=== PATIENT | female | born 1995 | race African-American/Black ===

== ENCOUNTER 2018-08-03 12:15 | Emergency (ER) | payer OTHER ==
[~2018-08-03] VITALS: Ht 152.4 cm; Wt 54.9 kg
[2018-08-03 13:07] LABS: PLATELET COUNT 355 K/uL (152-353)
[2018-08-03 13:15] LABS: POTASSIUM 3.6 mmol/L (3.6-5.2)
[2018-08-03 15:15] VITALS: BP 129/84; TEMP 98.7
== END 2018-08-03 15:24 | disposition home or self-care (01) ==
LOC: ED 12:15
PROVIDERS: Family Medicine
DX: R10.84 Generalized abdominal pain (principal); S22.41XA Multiple fractures of ribs, right side, initial encounter for closed fracture; K59.00 Constipation, unspecified
CPT/HCPCS: 36415; 74022; 80053; 81000; 81025; 82150; 83690; 85027; 99283; J1885

== ENCOUNTER 2021-05-19 05:06 | Emergency (ER) | payer OTHER ==
[~2021-05-19] VITALS: Ht 152.4 cm; Wt 82.1 kg
[2021-05-19 06:03] VITALS: BP 116/76; TEMP 98.3
== END 2021-05-19 06:03 | disposition home or self-care (01) ==
LOC: ED 05:06
DX: L50.8 Other urticaria (principal)
CPT/HCPCS: 96372; 99283; J2930; J3410

== ENCOUNTER 2021-11-23 09:38 | Emergency (ER) | payer OTHER ==
[~2021-11-23] VITALS: Ht 152.4 cm; Wt 69.9 kg
[2021-11-23 09:42] VITALS: BP 118/85; TEMP 98
== END 2021-11-23 10:33 | disposition home or self-care (01) ==
LOC: ED 09:38
DX: S20.211A Contusion of right front wall of thorax, initial encounter (principal); W01.0XXA Fall on same level from slipping, tripping and stumbling without subsequent striking against object, initial encounter; Y93.H2 Activity, gardening and landscaping; Y92.096 Garden or yard of other non-institutional residence as the place of occurrence of the external cause
CPT/HCPCS: 96372; 99283; J1885